=== PATIENT | male | born 1995 | race African-American/Black ===

== ENCOUNTER 2018-06-18 13:36 | Emergency (ER) | payer BC ==
[2018-06-18 14:43] VITALS: BP 133/83
--- NOTE | 2018-06-18 15:18 | ED ---
GI/ HPI - HPI Summary HPI Summary: 23 yr old male with the request for STD testing. The patient reports that he is a homosexual male and engages in anal sex. He does not have any symptoms of STDs. No sore throat, fever, chills, lymph node enlargement, dysuria, scrotal pain, rashes or sores on genitals, anal pain. He just wants the screening tests done. His PMD is in [place], [place]. - History of Current Complaint Chief Complaint: UCGeneralIllness Time Seen by Provider: 06/18/18 14:53 Stated Complaint: PERSONAL Pain Intensity: 0 - Allergy/Home Medications Allergies/Adverse Reactions: Allergies Allergy/AdvReac Type Severity Reaction Status Date / Time No Known Allergies Allergy Verified 06/18/18 14:39 Home Medications: Home Medications NK [No Home Medications Reported] 06/18/18 [History Confirmed 06/18/18] PMH/Surg Hx/FS Hx/Imm Hx Infectious Disease History: No Infectious Disease History: Denies: Traveled Outside the in Last 30 Days - Social History Occupation: Employed Full-time Alcohol Use: Occasionally Substance Use Type: Reports: None Smoking Status (MU): Never Smoked Tobacco Review of Systems Constitutional: Negative Negative: Sore Throat Positive: no symptoms reported, other - requests screening for STDs, and engages in Anal sex. Negative: Rash All Other Systems Reviewed And Are Negative: Yes Physical Exam Triage Information Reviewed: Yes Vital Signs On Initial Exam: Initial Vitals Temp Pulse Resp BP Pulse Ox 98 F 82 15 133/83 100 06/18/18 14:40 06/18/18 14:40 06/18/18 14:40 06/18/18 14:40 06/18/18 14:40 Vital Signs Reviewed: Yes Appearance: Positive: Well-Appearing, No Pain Distress Skin: Positive: Warm, Skin Color Reflects Adequate Perfusion Head/Face: Positive: Normal Head/Face Inspection Eyes: Positive: EOMI, CARA ENT: Positive: Pharynx normal Neck: Positive: Nontender, No Lymphadenopathy Respiratory/Lung Sounds: Positive: Clear to Auscultation, Breath Sounds Present Cardiovascular: Positive: RRR. Negative: Murmur Abdomen Description: Positive: Nontender Male Genital Exam: Positive: Normal Genitalia, No Hernia. Negative: Scrotum Tenderness (R), Scrotum Tenderness (L), Testicular Tenderness (R), Testicular Tenderness (L), Urethral Discharge Musculoskeletal: Positive: Strength/ROM Intact Neurological: Positive: Sensory/Motor Intact, Alert, Oriented to Person Place, Time, CN Intact II-III Psychiatric: Positive: Normal Diagnostics - Vital Signs Vital Signs Temp Pulse Resp BP Pulse Ox 06/18/18 14:40 98 F 82 15 133/83 100 - Laboratory Lab Statement: Any lab studies that have been ordered have been reviewed, and results considered in the medical decision making process. GIGU Course/Dx - Course Course Of Treatment: 23 yr old with request for STD screening. Plan send GC/ Chlamydia, RPR, and HIV. DC home. Referral to [facility] referral line. If positive tests then rx and referral to ID. - Diagnoses Provider Diagnoses: Screening examination for STD (sexually transmitted disease) Discharge - Sign-Out/Discharge Documenting (check all that apply): Patient Departure All imaging exams completed and their final reports reviewed: No Studies - Discharge Plan Condition: Good Disposition: HOME Patient Education Materials: Sexually Transmitted Diseases (ED), Safe Sex (ED) , Hypertension (ED) Referrals: Haroldo Seo MD [Primary Care Provider] - 2 Days [facility] PHYSICIAN REFERRAL [Outside] - 2 Days - Billing Disposition and Condition Condition: GOOD Disposition: Home
== END 2018-06-18 15:40 | disposition home or self-care (01) ==
LOC: UCCORT 13:36
DX: Z11.3 Encounter for screening for infections with a predominantly sexual mode of transmission (principal)
CPT/HCPCS: 36415; 86592; 86703; 87491; 87591; 99201; G0463

== ENCOUNTER 2018-09-02 17:43 | Emergency (ER) | payer BC ==
[2018-09-02 18:41] VITALS: BP 118/60
[2018-09-02] MEDS ORDERED: Azithromycin TAB* 250 MG PO ONE (19:52)
[2018-09-02] MEDS ORDERED: cefTRIAXone VIAL(*) 250 MG VIAL IM ONE (19:52)
--- NOTE | 2018-09-02 19:57 | UC ---
Complaint Male HPI - HPI Summary HPI Summary: 23-year-old male comes in with a chief complaint of penile discharge and burning with urination. Been going on for 6 days. No fevers or chills no abdominal pain. He is concerned about an STI. He has sex with men. He says it clean 2 weeks ago for STI's. He's had one oral sex.encounter since that time. No complaint of any testicular pain no rashes. Feels well otherwise. - History of Current Complaint Chief Complaint: UCGU Stated Complaint: BURNING URINATION Time Seen by Provider: 09/02/18 19:43 Pain Intensity: 0 - Allergies/Home Medications Allergies/Adverse Reactions: Allergies Allergy/AdvReac Type Severity Reaction Status Date / Time No Known Allergies Allergy Verified 09/02/18 18:36 PMH/Surg Hx/FS Hx/Imm Hx Previously Healthy: Yes - Surgical History Surgical History: None - Family History Known Family History: Positive: Non-Contributory - Social History Alcohol Use: Occasionally Substance Use Type: None Smoking Status (MU): Never Smoked Tobacco Review of Systems All Other Systems Reviewed And Are Negative: Yes Constitutional: Positive: Negative Skin: Positive: Negative Eyes: Positive: Negative ENT: Positive: Negative Respiratory: Positive: Negative Cardiovascular: Positive: Negative Gastrointestinal: Positive: Negative Genitourinary: Positive: Dysuria, Vaginal/Penile Burning, Vaginal/Penile Discharge Motor: Positive: Negative Neurovascular: Positive: Negative Musculoskeletal: Positive: Negative Neurological: Positive: Negative Psychological: Positive: Negative Is Patient Immunocompromised?: No Physical Exam Triage Information Reviewed: Yes Appearance: Well-Appearing, No Pain Distress, Well-Nourished Vital Signs: Initial Vital Signs Temp 98.5 F 09/02/18 18:37 Pulse 75 09/02/18 18:37 Resp 18 09/02/18 18:37 BP 118/60 09/02/18 18:37 Pulse Ox 100 09/02/18 18:37 Vital Signs Reviewed: Yes Eye Exam: Normal Eyes: Positive: Conjunctiva Clear ENT: Positive: Pharynx normal Neck exam: Normal Neck: Positive: Supple Respiratory: Positive: Lungs clear, Normal breath sounds, No respiratory distress Cardiovascular: Positive: RRR Abdomen Description: Positive: Nontender, Soft Bowel Sounds: Positive: Present Male Genital Exam: Positive: Urethral Discharge. Negative: Inguinal Tenderness , Lesions, Scrotum Tenderness (R), Scrotum Tenderness (L), Testicular Tenderness (R), Testicular Tenderness (L) Musculoskeletal Exam: Normal Musculoskeletal: Positive: Strength Intact, ROM Intact Neurological Exam: Normal Neurological: Positive: Alert, Muscle Tone Normal Psychological Exam: Normal Psychological: Positive: Age Appropriate Behavior Skin Exam: Normal Complaint Male Course/Dx - Course Course Of Treatment: In clinic the patient in clinic patient was treated with Rocephin 250 mg IM and is advised 1 g by mouth. Results are pending. We discussed abstaining from sex and getting retested. Return if worse or any questions concerns. - Differential Dx/Diagnosis Provider Diagnosis: Urethritis Discharge - Sign-Out/Discharge Documenting (check all that apply): Patient Departure All imaging exams completed and their final reports reviewed: No Studies - Discharge Plan Condition: Stable Disposition: HOME Patient Education Materials: Nonspecific Urethritis in Men (ED) Referrals: Haroldo Seo MD [Primary Care Provider] - Additional Instructions: FOLLOW UP WITH YOUR DOCTOR IF NOT COMPLETELY IMPROVED. GET RECHECKED FOR ANY WORSENING OF YOUR CONDITION OR QUESTIONS OR CONCERNS. - Billing Disposition and Condition Condition: STABLE Disposition: Home
[2018-09-02] MEDS ORDERED: Lidocaine 1%* 5 ML VIAL ONE (20:05)
[2018-09-04 21:40] LABS: Trichomonas vaginalis SOURCE: Urine (Male Patient)
[2018-09-06 12:47] LABS: Neisseria gonorrhoeae (GC) RNA Negative (Negative)
== END 2018-09-02 20:00 | disposition home or self-care (01) ==
LOC: UCEAST 17:43
DX: N34.2 Other urethritis (principal)
CPT/HCPCS: 81003; 87086; 87491; 87591; 87661; 96372; 99212; A9270-GY; G0463; J0696

== ENCOUNTER 2019-04-08 16:14 | Emergency (ER) | payer BC, OTHER ==
[2019-04-08 16:39] VITALS: BP 117/65
--- NOTE | 2019-04-08 17:20 | UC ---
Throat Pain/Nasal Marcelo HPI - HPI Summary HPI Summary: 23 male presents here with desire for STD testing Sore throat x 4 days had oral sex no fever on PREP - History of Current Complaint Chief Complaint: UCGeneralIllness Stated Complaint: STD SCREENING Time Seen by Provider: 04/08/19 16:47 Hx Obtained From: Patient Onset/Duration: Gradual Onset, Lasting Days Severity: Mild Pain Intensity: 4 Pain Scale Used: 0-10 Numeric Cough: Nonproductive Associated Signs & Symptoms: Positive: Negative - Epiglottits Risk Factors Epiglottis Risk Factors: Negative - Allergies/Home Medications Allergies/Adverse Reactions: Allergies Allergy/AdvReac Type Severity Reaction Status Date / Time No Known Allergies Allergy Verified 04/08/19 16:39 Home Medications: Home Medications Tenofovir/Emtricitab 200/300 * [Truvada 200/300 mg*] 1 tab PO DAILY 04/08/19 [ History Confirmed 04/08/19] PMH/Surg Hx/FS Hx/Imm Hx Previously Healthy: Yes - Surgical History Surgical History: None - Family History Known Family History: Positive: Non-Contributory - Social History Alcohol Use: Rare Substance Use Type: None Smoking Status (MU): Never Smoked Tobacco Review of Systems All Other Systems Reviewed And Are Negative: Yes Constitutional: Positive: Negative Skin: Positive: Negative Eyes: Positive: Negative ENT: Positive: Sore Throat Respiratory: Positive: Negative Cardiovascular: Positive: Negative Gastrointestinal: Positive: Negative Genitourinary: Positive: Negative Motor: Positive: Negative Neurovascular: Positive: Negative Musculoskeletal: Positive: Negative Neurological: Positive: Negative Psychological: Positive: Negative Physical Exam Triage Information Reviewed: Yes Appearance: Well-Appearing, No Pain Distress, Well-Nourished Vital Signs: Initial Vital Signs Temp 98.0 F 04/08/19 16:34 Pulse 65 04/08/19 16:34 Resp 16 04/08/19 16:34 BP 117/65 04/08/19 16:34 Pulse Ox 100 04/08/19 16:34 Vital Signs Reviewed: Yes Eyes: Positive: Conjunctiva Clear ENT: Positive: Hearing grossly normal, Pharyngeal erythema. Negative: Nasal congestion, Nasal drainage, Trismus, Muffled voice, Hoarse voice, Dental tenderness, Sinus tenderness Neck: Positive: Supple, Nontender, Enlarged Nodes @ - ant cerv Respiratory: Positive: Lungs clear, Normal breath sounds, No respiratory distress, No accessory muscle use Cardiovascular: Positive: RRR, No Murmur Neurological: Positive: Alert Psychological Exam: Normal Diagnostics - Laboratory Lab Results: rapid strep + Throat Pain/Nasal Course/Dx - Differential Dx/Diagnosis Provider Diagnosis: Pharyngitis, Concern about STD in male without diagnosis Discharge ED - Sign-Out/Discharge Documenting (check all that apply): Patient Departure All imaging exams completed and their final reports reviewed: No Studies - Discharge Plan Condition: Stable Disposition: HOME Prescriptions: Amoxicillin PO (*) [Amoxicillin 875 MG (*)] 875 mg PO BID #20 tab Patient Education Materials: Strep Throat (ED) Referrals: Haroldo Seo MD [Primary Care Provider] - 4 Days (if not better) Additional Instructions: other tests pending - Billing Disposition and Condition Condition: STABLE Disposition: Home
[2019-04-09 15:21] LABS: HIV 4th Generation Nonreactive (Nonreactive)
[2019-04-11 13:06] LABS: Chlamydia trachomatis NAA Negative (Negative); Neisseria gonorrhoeae (GC) NAA Negative (Negative)
[2019-04-14 23:29] LABS: C. trach Amplified RNA Negative (Negative); N Gonorr Amplified RNA Negative (Negative)
== END 2019-04-08 18:28 | disposition home or self-care (01) ==
LOC: UCEAST 16:14
DX: J02.9 Acute pharyngitis, unspecified (principal); Z20.2 Contact with and (suspected) exposure to infections with a predominantly sexual mode of transmission
CPT/HCPCS: 36415; 86780; 87389; 87491; 87591; 87651; 99212; G0463